=== PATIENT | female | born 2000 | race Caucasian/White ===

== ENCOUNTER 2025-05-18 13:37 | Emergency (ER) | payer SELFPAY ==
[~2025-05-18] VITALS: Ht 167.6 cm; Wt 91.0 kg
[2025-05-18 13:41] VITALS: BP 132/76; PULSE 89; RESP 16; TEMP 98.3; O2SAT 99
[2025-05-18] MEDS ORDERED: TETANUS, DIPHTHERIA, PERTUSSIS VAC/PF 0.5ML (>10YR OLD) IM ONE (15:30)
== END 2025-05-18 17:55 | disposition home or self-care (01) ==
LOC: ER 13:37
DX: T69.021A Immersion foot, right foot, initial encounter (principal); T69.022A Immersion foot, left foot, initial encounter; X58.XXXA Exposure to other specified factors, initial encounter; Y93.89 Activity, other specified; Y92.89 Other specified places as the place of occurrence of the external cause; Y99.8 Other external cause status
CPT/HCPCS: 99283